=== PATIENT | female | born 1970 | race Caucasian/White ===

== ENCOUNTER 2017-02-23 18:29 | Emergency (ER) | payer MEDICAID ==
[2017-02-23 18:51] VITALS: RESP 18
[2017-02-23] MEDS ORDERED: IPRATROPIUM-ALBUTEROL 3 ML NEB INHALATION STA (18:51)
--- NOTE | 2017-02-23 19:02 | ED ---
URI HPI - General Chief Complaint: Upper Respiratory Infection Stated Complaint: cold/flu like symptoms Time Seen by Provider: 02/23/17 18:37 Source: patient, RN notes reviewed Mode of arrival: ambulatory Limitations: no limitations - History of Present Illness Initial Comments: Patient is a 46-year-old female presents emergency room for evaluation of cough , congestion and sore throat. Patient states about 3 weeks ago she developed cough and congestion. Patient states symptoms are not going away with over-the- counter remedies. Patient states she has throat pain every time she coughs. Patient states she is coughing up green mucus. Patient states she is also having nasal congestion. Patient denies ear pain. Patient denies chest pain. Patient only feels short of breath when she is having a coughing fit. Patient denies abdominal pain. Patient denies nausea or vomiting. Patient denies any fevers or chills. Patient states she is up-to-date on all her immunizations. Patient denies smoking. Patient denies history of asthma or COPD. - Related Data Previous Rx's Medication Instructions Recorded Azithromycin [Zithromax Z-pack] 250 mg PO DIRECTED #6 tab 02/23/17 predniSONE 40 mg PO DAILY #4 tab 02/23/17 Allergies Allergy/AdvReac Type Severity Reaction Status Date / Time hydromorphone HCl Allergy Itching Verified 02/23/17 18:59 [From Dilaudid] Penicillins Allergy Rash/Hives Verified 02/23/17 18:59 Review of Systems ROS Statement: Those systems with pertinent positive or pertinent negative responses have been documented in the HPI. ROS Other: All systems not noted in ROS Statement are negative. Past Medical History Past Medical History: No Reported History History of Any Multi-Drug Resistant Organisms: None Reported Past Surgical History: No Surgical Hx Reported Past Psychological History: No Psychological Hx Reported Smoking Status: Never smoker Past Alcohol Use History: None Reported Past Drug Use History: None Reported General Exam - General Exam Comments Initial Comments: sitting in exam room, no acute distress. Limitations: no limitations General appearance: alert, in no apparent distress Head exam: Present: atraumatic, normocephalic, normal inspection Eye exam: Present: normal appearance ENT exam: Present: normal exam, normal oropharynx, mucous membranes moist, TM's normal bilaterally, normal external ear exam Neck exam: Present: normal inspection, full ROM. Absent: tenderness, lymphadenopathy Respiratory exam: Present: normal lung sounds bilaterally. Absent: respiratory distress Cardiovascular Exam: Present: regular rate, normal rhythm, normal heart sounds Extremities exam: Present: normal inspection Back exam: Present: normal inspection Neurological exam: Present: alert, oriented X3, CN II-XII intact, normal gait Psychiatric exam: Present: normal affect, normal mood Skin exam: Present: warm, dry, intact, normal color. Absent: rash Course Vital Signs 02/23/17 02/23/17 02/23/17 18:30 18:51 19:36 Temperature 98.6 F Pulse Rate 95 96 Respiratory 20 18 Rate Blood Pressure 142/74 O2 Sat by Pulse 97 Oximetry Medical Decision Making - Medical Decision Making Patient is a 46-year-old female presents emergency room for evaluation cough and congestion 3 weeks. Chest x-ray shows no acute findings. Rapid influenza negative. Will treat patient for bronchitis. Advised patient to follow-up with her primary care provider in 24-48 hours for reevaluation. Patient states she understands everything that was discussed with her. Return parameters discussed. - Lab Data Lab Results 02/23/17 Range/Units 18:49 Influenza Type A RNA Not Detected (Not Detectd) Influenza Type B (PCR) Not Detected (Not Detectd) - Radiology Data Radiology results: report reviewed, image reviewed Disposition Clinical Impression: Bronchitis Disposition: HOME SELF-CARE Condition: Good Instructions: Acute Bronchitis (ED) Additional Instructions: Take medications as directed. Please up with primary care provider in 24-48 hours for reevaluation. If any new symptom arises or symptoms worsen, return to ER as soon as possible. Prescriptions: Azithromycin [Zithromax Z-pack] 250 mg PO DIRECTED #6 tab predniSONE 40 mg PO DAILY #4 tab Referrals: None,Stated [Primary Care Provider] - 1-2 days Time of Disposition: 19:37
--- NOTE | 2017-02-23 19:29 | XR ---
EXAMINATION TYPE: XR chest 2V DATE OF EXAM: 02/23/2017 7:08 PM COMPARISON: 01/21/2015 HISTORY: Cough TECHNIQUE: Frontal and lateral views of the chest are obtained. FINDINGS: Heart and mediastinum are normal. Lungs are clear. Diaphragm is normal. Bony thorax appear s normal. IMPRESSION: Normal chest. No change.
[2017-02-23 19:49] VITALS: BP 126/73; TEMP 98.4
[2017-02-23 19:51] VITALS: PULSE 92
== END 2017-02-23 19:49 | disposition home or self-care (01) ==
LOC: EC 18:29
DX: J40 Bronchitis, not specified as acute or chronic (principal); R07.9 Chest pain, unspecified; Z88.0 Allergy status to penicillin; Z88.5 Allergy status to narcotic agent
CPT/HCPCS: 71020; 87502; 94640; 99284

== ENCOUNTER → 2018-08-21 | Outpatient (CLI) | payer MEDICAID ==
--- NOTE | 2018-08-21 15:05 | MM ---
Reason for exam: additional evaluation requested from prior study. Last mammogram was performed 1 year and 11 months ago. History: Patient is nulliparous. Family history of breast cancer in mother at age 60. Physical Findings: Nurse Summary: 1cm nodule in the right breast at 2 o'clock (nurse karma). MG Diagnostic Mammo w CAD EDU Bilateral CC and MLO view(s) were taken. Prior study comparison: September 20, 2016, bilateral MG 3d work up w/cad EDU. September 10, 2016, bilateral MG screening mammo w CAD. The breast tissue is extremely dense which could obscure a lesion on mammography. Finding: There are typically benign round, diffuse/scattered calcifications in both breasts. There is no discrete abnormality at palpable. No significant changes in finding since September 20, 2016 and September 10, 2016. These results were verbally communicated with the patient and result sheet given to the patient on 08/21/18. ASSESSMENT: Benign, BI-RAD 2 RECOMMENDATION: Ultrasound of the right breast in 1 year.
--- NOTE | 2018-08-21 15:08 | USB ---
Reason for exam: additional evaluation requested from abnormal screening. History: Patient is nulliparous. Family history of breast cancer in mother at age 60. US Breast Limited RT Right limited breast ultrasound including focal area of concern, retroareolar and axilla demonstrates a 0.5 x 0.3 x 0.3cm oval, hypoechoic lesion at 1 o'clock, a 1.0 x 0.7 x 0.3cm oval, cystic cluster at 1 o'clock BB, a 0.5 x 0.3 x 0.3cm oval, complex cystic lesion at 1 o'clock, a 0.6 x 0.5 x 0.3cm oval, complex cystic lesion at 3 o'clock, a 1.2 x 0.8 x 0.2cm oval, complex cystic lesion at 3 o'clock and duct ectasia at the posterior nipple. These results were verbally communicated with the patient and result sheet given to the patient on 08/21/18. ASSESSMENT: Probably benign, BI-RAD 3 RECOMMENDATION: Ultrasound of the right breast in 6 months.
== END | disposition home or self-care (01) ==
LOC: RADMAMWWP 13:13
PROVIDERS: ATTEND Obstetrics & Gynecology
DX: R92.8 Other abnormal and inconclusive findings on diagnostic imaging of breast (principal)
CPT/HCPCS: 77066

== ENCOUNTER → 2019-09-03 | Outpatient (CLI) | payer MEDICAID ==
--- NOTE | 2019-09-03 08:39 | MM ---
Reason for exam: additional evaluation requested from prior study. Last mammogram was performed 1 year ago. History: Patient is nulliparous. Family history of breast cancer in mother at age 60. Physical Findings: Nurse did not find any significant physical abnormalities on exam. MG Diagnostic Mammo w CAD EDU Bilateral CC, MLO, and XCCL view(s) were taken. Prior study comparison: August 21, 2018, bilateral MG diagnostic mammo w CAD EDU. September 20, 2016, bilateral MG 3d work up w/cad EDU. The breast tissue is heterogeneously dense. This may lower the sensitivity of mammography. Stable benign calcifications. There is no discrete abnormality. No significant new findings when compared with previous films. These results were verbally communicated with the patient and result sheet given to the patient on 09/03/19. ASSESSMENT: Benign, BI-RAD 2 RECOMMENDATION: Routine screening mammogram of both breasts in 1 year.
== END | disposition home or self-care (01) ==
LOC: RADMAMWWP 06:55
PROVIDERS: ATTEND Obstetrics & Gynecology
DX: R92.8 Other abnormal and inconclusive findings on diagnostic imaging of breast (principal)
CPT/HCPCS: 77066

== ENCOUNTER → 2021-06-11 | Outpatient (CLI) | payer MEDICAID ==
--- NOTE | 2021-06-12 12:02 | MM ---
Reason for exam: screening (asymptomatic). Last mammogram was performed 1 year and 9 months ago. History: Patient is nulliparous. Family history of breast cancer in mother at age 60. Physical Findings: A clinical breast exam by your physician is recommended on an annual basis and results should be correlated with mammographic findings. MG 3D Screening Mammo W/Cad Bilateral CC and MLO view(s) were taken. Prior study comparison: September 03, 2019, bilateral MG diagnostic mammo w CAD EDU. August 21, 2018, bilateral MG diagnostic mammo w CAD EDU. The breast tissue is heterogeneously dense. This may lower the sensitivity of mammography. New spicuated lesion upper outer left breast 9cm from nipple. This finding is changed when compared with previous exams. ASSESSMENT: Incomplete: need additional imaging evaluation, BI-RAD 0 RECOMMENDATION: Special view mammogram of the left breast. If lesion persists on supplemental views, image directed ultrasound is recommended. [facility] will attempt to contact patient to return for supplemental views and ultrasound if indicated.
== END | disposition home or self-care (01) ==
LOC: RADMAMWWP 12:30
PROVIDERS: ATTEND Obstetrics & Gynecology
DX: Z12.31 Encounter for screening mammogram for malignant neoplasm of breast (principal); Z80.3 Family history of malignant neoplasm of breast
CPT/HCPCS: 77063; 77067

== ENCOUNTER → 2021-07-20 | Outpatient (CLI) | payer MEDICAID ==
--- NOTE | 2021-07-20 11:41 | MM ---
Reason for exam: additional evaluation requested from abnormal screening. Last mammogram was performed 1 month ago. History: Patient is nulliparous. Family history of breast cancer in mother at age 60. Physical Findings: Nurse did not find any significant physical abnormalities on exam. MG 3D Work Up W/Cad LT Spot compression CC, spot compression MLO, and LM view(s) were taken of the left breast. Prior study comparison: June 11, 2021, bilateral MG 3d screening mammo w/cad. September 03, 2019, bilateral MG diagnostic mammo w CAD EDU. The breast tissue is heterogeneously dense. This may lower the sensitivity of mammography. Benign appearing calcifications in the left breast. These results were verbally communicated with the patient and result sheet given to the patient on 07/20/21. ASSESSMENT: Probably benign, BI-RAD 3 RECOMMENDATION: Follow-up diagnostic mammogram of the left breast in 6 months.
== END | disposition home or self-care (01) ==
LOC: RADMAMWWP 10:31
PROVIDERS: ATTEND Obstetrics & Gynecology
DX: R92.8 Other abnormal and inconclusive findings on diagnostic imaging of breast (principal); Z80.3 Family history of malignant neoplasm of breast
CPT/HCPCS: 77061; 77065

== ENCOUNTER 2022-07-25 17:25 | Emergency (ER) | payer MEDICAID ==
--- NOTE | 2022-07-25 18:27 | XR ---
EXAMINATION: XR chest 2V DATE AND TIME: 07/25/2022 6:05 PM CLINICAL INDICATION: cough, sore throat TECHNIQUE: Departmental protocol COMPARISON: 02/23/2017 FINDINGS: The overlying soft tissues are prominent. There is a prominent interstitial pattern in the perihilar position bilaterally, particularly in the infrahilar position bilaterally. This is a mild finding and can correlate with a clinical diagnosis o f bronchitis or developing bronchopneumonia. The lungs are well expanded, and there is no saray conso lidative opacity. The pleural spaces are negative. The cardiac silhouette is not enlarged. The remainder of the mediastinal silhouette is unremarkable. The skeletal structures and soft tissues are negative for acute findings. IMPRESSION: Bilateral perihilar interstitial pattern.
--- NOTE | 2022-07-25 18:37 | ED ---
URI HPI - General Chief Complaint: Upper Respiratory Infection Stated Complaint: Cough,Sore throat Time Seen by Provider: 07/25/22 18:10 Source: patient Mode of arrival: ambulatory Limitations: no limitations - History of Present Illness Initial Comments: Patient is a 51-year-old female presenting with chief complaint of cough and congestion. Patient states is been ongoing for 1 week. She admits to rhinorrhea. States that cough alternates between dry and productive. Denies any fever or chills. Admits to some body aches and fatigue. Denies any chest pain, difficulty breathing, nausea, vomiting, abdominal pain, sinus pain or pressure, ear pain, dysphagia, neck pain or stiffness, dizziness. - Related Data Previous Rx's Medication Instructions Recorded Azithromycin [Zithromax Z-pack (6 250 mg PO DIRECTED #6 tab 02/23/17 tabs)] predniSONE [Deltasone] 40 mg PO DAILY #4 tab 02/23/17 Albuterol Inhaler [Ventolin Hfa 1 - 2 puff INHALATION Q6H PRN #1 07/25/22 Inhaler] unit Azithromycin [Zithromax Z Pack] 1 tab PO DIRECTED #6 tab 07/25/22 methylPREDNISolone Dose Pack 4 mg PO DIRECTED #1 packet 07/25/22 [Medrol Dose Pack] Allergies Allergy/AdvReac Type Severity Reaction Status Date / Time hydromorphone HCl Allergy Itching Verified 07/25/22 17:50 [From Dilaudid] Penicillins Allergy Rash/Hives Verified 07/25/22 17:50 Review of Systems ROS Statement: Those systems with pertinent positive or pertinent negative responses have been documented in the HPI. ROS Other: All systems not noted in ROS Statement are negative. Past Medical History Past Medical History: No Reported History History of Any Multi-Drug Resistant Organisms: None Reported Past Surgical History: No Surgical Hx Reported Past Psychological History: No Psychological Hx Reported Smoking Status: Never smoker Past Alcohol Use History: None Reported Past Drug Use History: None Reported General Exam Limitations: no limitations General appearance: alert, in no apparent distress Head exam: Present: atraumatic, normocephalic, normal inspection Eye exam: Present: normal appearance, PERRL, EOMI. Absent: scleral icterus, conjunctival injection, periorbital swelling ENT exam: Present: normal exam, normal oropharynx, mucous membranes moist, TM's normal bilaterally Neck exam: Present: normal inspection. Absent: tenderness, meningismus, lymphadenopathy Respiratory exam: Present: normal lung sounds bilaterally. Absent: respiratory distress, wheezes, rales, rhonchi, stridor Cardiovascular Exam: Present: regular rate, normal rhythm, normal heart sounds. Absent: systolic murmur, diastolic murmur, rubs, gallop, clicks Neurological exam: Present: alert, oriented X3, CN II-XII intact Psychiatric exam: Present: normal affect, normal mood Skin exam: Present: warm, dry, intact, normal color. Absent: rash Course Vital Signs 07/25/22 07/25/22 07/25/22 17:48 18:50 19:00 Temperature 98.2 F 98.9 F Pulse Rate 108 H 100 Respiratory 20 20 18 Rate Blood Pressure 145/77 124/85 O2 Sat by Pulse 99 95 Oximetry Medical Decision Making - Medical Decision Making Patient is a 51-year-old female presenting with chief complaint of cough and congestion for one week. Physical examination is unremarkable. Patient is negative for Covid, chest x-ray suggests bronchitis. Due to the length of the patient's symptoms will treat with azithromycin today, as well as Medrol Dosepak and albuterol. Educated on supportive treatment. Follow-up with PCP. Report back to ER with any new or worsening symptoms. Discussed return parameters and answered all questions. Patient conveyed verbal understanding and agreed to the plan. I discussed this case in detail with my attending Dr. Miranda. - Lab Data Lab Results 07/25/22 Range/Units 17:51 Coronavirus (PCR) Not Detected (Not Detectd) Disposition Clinical Impression: Bronchitis Disposition: HOME SELF-CARE Condition: Good Instructions (If sedation given, give patient instructions): Acute Bronchitis (ED) Additional Instructions: Follow-up with PCP. Report back to ER with any new or worsening symptoms. Take medication as prescribed. Prescriptions: methylPREDNISolone Dose Pack [Medrol Dose Pack] 4 mg PO DIRECTED #1 packet Albuterol Inhaler [Ventolin Hfa Inhaler] 1 - 2 puff INHALATION Q6H PRN #1 unit PRN Reason: Shortness Of Breath Azithromycin [Zithromax Z Pack] 1 tab PO DIRECTED #6 tab Is patient prescribed a controlled substance at d/c from ED?: No Referrals: None,Stated [Primary Care Provider] - 1-2 days Time of Disposition: 18:36
[2022-07-25 19:01] VITALS: BP 124/85; PULSE 100; RESP 18; TEMP 98.9
== END 2022-07-25 19:01 | disposition home or self-care (01) ==
LOC: EC 17:25
DX: J40 Bronchitis, not specified as acute or chronic (principal); Z88.5 Allergy status to narcotic agent; Z88.1 Allergy status to other antibiotic agents; Z79.51 Long term (current) use of inhaled steroids; Z79.899 Other long term (current) drug therapy; Z20.822 Contact with and (suspected) exposure to COVID-19
CPT/HCPCS: 71046; 87635; 99283